=== PATIENT | male | born 1940 | race Native Hawaiian/Other Pacific Islander ===

== ENCOUNTER 2016-12-03 11:19 | Outpatient (CLI) | payer OTHER ==
[~2016-12-03 11:19] MED LIST: CARB25TA29 PO; CARV6.25 PO; DOCU100C10 PO; GLIP5TAB76; GLUCOPHAGE1000 MG PO; HYDR-2748 PO; LANTUS100 MG/ML SC; LISI10TA11 PO; LOVASTATIN40 MG OR; NEUPRO4 MG/24 HR TD; PYRIDIUM100 MG OR; REQUIP1 MG OR; VICTOZA18 MG/3 ML SC; ZOFRAN8 MG OR
[2016-12-03 13:08] LABS: POTASSIUM 4.7 mmol/L (3.6-5.2)
[2016-12-03 13:55] LABS: PLATELET COUNT 203 K/uL (142-355)
== END 2016-12-03 20:29 | disposition home or self-care (01) ==
LOC: LABW 11:19
PROVIDERS: Specialist
DX: Z01.810 Encounter for preprocedural cardiovascular examination (principal); I20.0 Unstable angina
CPT/HCPCS: 36415; 80053; 85027

== ENCOUNTER 2017-03-12 13:52 | Outpatient (CLI) | payer OTHER | END 2017-03-12 19:33 | disposition home or self-care (01) | LOC: LAB 13:52 | DX: N39.0 Urinary tract infection, site not specified (principal) | CPT/HCPCS: 81000 ==

== ENCOUNTER 2017-03-19 08:29 | Outpatient (CLI) | payer OTHER | END 2017-03-19 19:20 | disposition home or self-care (01) | LOC: RAD 08:29 | DX: K21.0 Gastro-esophageal reflux disease with esophagitis (principal) ==

== ENCOUNTER 2017-04-03 15:05 | Outpatient (CLI) | payer OTHER | END 2017-04-03 16:10 | disposition home or self-care (01) | LOC: RAD 15:05 | DX: R06.09 Other forms of dyspnea (principal); J30.9 Allergic rhinitis, unspecified ==

== ENCOUNTER 2017-04-25 11:22 | Outpatient (CLI) | payer OTHER | END 2017-04-25 19:08 | disposition home or self-care (01) | LOC: LABW 11:22 | PROVIDERS: Nurse Practitioner Adult Health | DX: I25.10 Atherosclerotic heart disease of native coronary artery without angina pectoris (principal); E78.2 Mixed hyperlipidemia; Z79.899 Other long term (current) drug therapy; Z51.81 Encounter for therapeutic drug level monitoring | CPT/HCPCS: 36415; 80061; 80076 ==

== ENCOUNTER 2017-08-28 18:41 | Outpatient (CLI) | payer OTHER | END 2017-08-28 19:16 | disposition short-term general hospital (02) | LOC: AMB 18:41 | DX: R07.89 Other chest pain (principal); R53.1 Weakness | CPT/HCPCS: A0425; A0427 ==